=== PATIENT | male | born 1955 | race Caucasian/White ===

== ENCOUNTER 2021-02-08 10:56 | Outpatient (CLI) | payer MEDICARE, SELFPAY ==
--- NOTE | ~2021-02-08 | CT_ITS ---
EXAMINATION: CT pelvis wo con DATE: 02/08/2021 11:30 INDICATION: Penile implant failure TECHNIQUE: Computed tomography (CT) of the pelvis was performed without intravenous contrast. The dos e-length product (DLP) was 757.21 mGy-cm. Automated exposure control and iterative reconstruction gil hnique were employed. COMPARISON: None FINDINGS: The reservoir for a penile implant left anterior pelvis and is collapsed. Catheter tubing a ppears to be intact. There are no pathologically enlarged pelvic lymph nodes. No dilated loops of bow el are evident. There is circumferential thickening of the bladder wall. There is anterior and roller stainer ior fusion at L5-S1. IMPRESSION: 1. Collapsed reservoir of the penile implant the left anterior pelvis. 2. Circumferential wall thickening of the urinary bladder which could reflect chronic outlet obstruct ion versus cystitis. Reviewed, dictated and finalized at location B. IMPRESSION: 1. Collapsed reservoir of the penile implant the left anterior pelvis. 2. Circumferential wall thickening of the urinary bladder which could reflect c hronic outlet obstruction versus cystitis.
== END 2021-02-08 10:57 | disposition home or self-care (01) ==
LOC: ANHIMG 11:05
PROVIDERS: Visit Provider Urology
DX: T83.410A Breakdown (mechanical) of implanted penile prosthesis, initial encounter (principal); R93.41 Abnormal radiologic findings on diagnostic imaging of renal pelvis, ureter, or bladder
CPT/HCPCS: 72192